=== PATIENT | female | born 1930 | race Caucasian/White ===

== ENCOUNTER 2016-12-26 17:25 | Emergency (ER) | payer OTHER, MEDICAID ==
[~2016-12-26] VITALS: Ht 162.6 cm; Wt 113.4 kg
[~2016-12-26 17:25] MED LIST: ALBU2TAB4 NEB; APIX5TAB PO; CLO01T PO; GABA250S2 PO; LISI-708 PO; LOR05T PO; METO25TA3 PO; PRI50T PO; SENN-8 PO; SIMV5TAB50 PO; TEMA15CA PO
[2016-12-26 22:36] LABS: Basophils # (auto) 0.1 uL; Basophils % (auto) 0.5 % (0.0-2.0); Eosinophils # (auto) 0.1 uL; Eosinophils % (auto) 1.1 % (0.0-7.0); Hematocrit 46.3 % (36.0-46.0); Hemoglobin 15.6 g/dL (12.2-16.2); Lymphocytes # (auto) 1.5 uL; Lymphocytes % (auto) 13.1 % (10.0-50.0); Mean Corpuscular Hemoglobin 31.3 pg (28.0-32.0); Mean Corpuscular Hgb Conc. 33.8 g/dL (32.0-36.0); Mean Corpuscular Volume 92.7 fL (80.0-100.0); Mean Platelet Volume 9.1 fL (7.4-10.4); Monocytes # (auto) 0.6 uL; Monocytes % (auto) 5.3 % (0.0-12.0); Neutrophils # (auto) 9.2 uL; Platelet Count (auto) 352 10^3/uL (140-450); Red Cell Distribution Width 13.8 % (11.6-16.0); White Blood Cell 11.6 10^3/uL (4.4-10.8)
[2016-12-26 22:45] LABS: Albumin 3.5 g/dL (3.4-5.0); Bilirubin, Total 0.7 mg/dL (0.2-1.0); Calcium 9.9 mg/dL (8.5-10.1); Potassium 3.5 mmol/L (3.5-5.1); Total Protein 8.5 g/dL (6.4-8.2)
[2016-12-27] MEDS ORDERED: methylPREDNISolone SOD SUCC 125 MG/2 ML VL IV ONE
[2016-12-27] MEDS ORDERED: KETOROLAC TROMETH 30 MG/ML 1ML VIAL IV ONE (00:15)
[2016-12-27] MEDS ORDERED: HYDROcodone-ACET 7.5/325MG TAB PO ONE (00:15)
[2016-12-27 07:45] VITALS: BP 179/102
== END 2016-12-27 08:14 | disposition short-term general hospital (02) ==
LOC: ER 17:25 → EDUNIT# 17:25 → EDBD 17:25 → ER 12-27 08:14
DX: M31.6 Other giant cell arteritis (principal); R51 Headache; R42 Dizziness and giddiness; R53.1 Weakness; J44.9 Chronic obstructive pulmonary disease, unspecified; E78.5 Hyperlipidemia, unspecified; I10 Essential (primary) hypertension; Z90.49 Acquired absence of other specified parts of digestive tract; Z90.710 Acquired absence of both cervix and uterus; Z86.73 Personal history of transient ischemic attack (TIA), and cerebral infarction without residual deficits
CPT/HCPCS: 36415; 70450; 71010; 80053; 85025; 85652; 94761; 96374; 96375; 99285; J1885; J2930

== ENCOUNTER 2017-08-10 22:07 | Emergency (ER) | payer MEDICARE, MEDICAID ==
[~2017-08-10] VITALS: Ht 163.8 cm; Wt 109.8 kg
[~2017-08-10 22:07] MED LIST changes: -LOR05T PO; +LORA-654 PO
[2017-08-10] MEDS ORDERED: diphenhdrAMINE HCL 50 MG/1 ML VL IV ONE (23:00)
[2017-08-10] MEDS ORDERED: FAMOTIDINE (10MG/ML) 2ML VL IV ONE (23:00)
[2017-08-10] MEDS ORDERED: SODIUM CHLORIDE 0.9% 1,000 ML IV ONE (23:02)
[2017-08-10] MEDS ORDERED: EPINEPHrine HCL 1 MG/1 ML AMP IM ONE (23:30)
[2017-08-11 01:12] VITALS: BP 111/64
== END 2017-08-11 01:51 | disposition home or self-care (01) ==
LOC: ER 22:07 → EDBD 22:07 → ER 08-11 01:51
DX: T78.40XA Allergy, unspecified, initial encounter (principal); J44.9 Chronic obstructive pulmonary disease, unspecified; E78.5 Hyperlipidemia, unspecified; I10 Essential (primary) hypertension; X58.XXXA Exposure to other specified factors, initial encounter; Z87.891 Personal history of nicotine dependence; Z90.49 Acquired absence of other specified parts of digestive tract; Z90.710 Acquired absence of both cervix and uterus; Z86.73 Personal history of transient ischemic attack (TIA), and cerebral infarction without residual deficits; Z79.899 Other long term (current) drug therapy
CPT/HCPCS: 71010; 96361; 96372; 96374; 96375; 99285; J0171; J1200; J3490; J7030